=== PATIENT | male | born 1990 | race Caucasian/White ===

== ENCOUNTER → 2024-04-13 | Outpatient (CLI) | payer BC ==
[2024-04-13 11:59] VITALS: BP 116/78; PULSE 81; RESP 18; TEMP 98
--- NOTE | 2024-04-13 12:26 | P.SLEEP ---
History of Present Illness DATE: 04/13/2024 CONSULTATION/NEW PATIENT EVALUATION HISTORY OF PRESENT ILLNESS/SLEEP-WAKE EVALUATION: 54-year-old gentleman had b een evaluated in the sleep center for possible obstructive sleep apnea hypopnea syndrome. SLEEP SCHEDULE: Usually sleep schedule 10 PM to 7 AM on weekdays and from 1 AM until 10 AM on weekend. FALLING ASLEEP: No problems with falling asleep. DURING SLEEP: Patient snores and wakes up from sleep up to 5 times with up to 1 episode of necessity to use restroom at night. Positive history of grinding teeth, heartburn and sweating. No history of hypnogogical hallucinations, sleep paralysis, or cataplexy. DURING THE DAY/WAKE STATE: During the day patient has difficulties to pay attention, to concentrate. [place] Sleepiness Scale is in very high range of 14. Patient may take 1 nap during the day. PAST MEDICAL HISTORY: Hypertension, diabetes mellitus, hyperlipidemia. PAST SURGICAL HISTORY: Bilateral knee surgery, left clavicle surgery. MEDICATIONS: Please see below. SOCIAL HISTORY: Please see below. FAMILY HISTORY: Hypertension, asthma, sleep apnea, diabetes, liver problems, t hyroid problems. REVIEW OF SYSTEMS: Snoring, multiple awakenings from sleep, sleepiness during the day. No fevers. No double vision. No recent chest pain. No shortness of breath. No abdominal pain. No bleeding episodes. No blood in urine. No seizure episodes. PHYSICAL EXAMINATION: GENERAL: A pleasant patient without any distress. VITAL SIGNS: Please see below, weight 312.6 pounds, BMI 41.1. HEENT: PERRLA, EOMI. Evaluation of oropharynx showed tongue protrudes midline, low position of soft palate Mallampati 23, extremely wide pillars, retrognathia 1 to 2 mm. NECK: Supple. No JVD. Thyroid is not palpable. 19 inches in circumference. LUNGS: Clear to percussion and to auscultation. Good air exchange. No wheezing or rhonchi. HEART: S1, S2 regular. No murmurs, gallops or rubs. ABDOMEN: Soft and nontender. Bowel sounds are present. No organomegaly appreciated. EXTREMITIES: No clubbing or cyanosis. 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 Cranial nerves 2 to 7 intact. There is no fasciculation or atrophy noted. No focal deficits observed. ASSESSMENT: 1. Snoring, multiple awakenings from sleep, small oropharyngeal airspace, extremely wide neck 19 inches in circumference, sleepiness with [place] Sleepiness Scale 14. Obstructive sleep apnea hypopnea syndrome. 2. Obesity, BMI 41.1. 3. Hypertension. 4. Diabetes mellitus. 5 hyperlipidemia. 6 . Status post bilateral knee surgery. 7. Status post left clavicle surgery. 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 Polysomnography for evaluation of patient's breathing during sleep. 2. Following plan after reading sleep study. 3. Preferable position during sleep on the side. 4. No driving if patient feels any sleepiness. Patient is aware of civil and criminal liability for unsafe driving. 5. Sleep hygiene with regular sleep time for at least 7.5-8 hours. 6. Watching and losing weight. Thank you very much for referring this patient for consultation. Sincerely, Feliberto Brady MD, PhD, FAASM. Diplomat of [employer], Sleep Medicine Board by [employer] Extender of [facility] [place] Past Medical History Past Medical History: Diabetes Mellitus, GERD/Reflux, Hyperlipidemia, Hypertension Additional Past Medical History / Comment(s): SNORING History of Any Multi-Drug Resistant Organisms: None Reported Past Surgical History: Orthopedic Surgery Additional Past Surgical History / Comment(s): LEFT COLLAR BONE, BILATERAL KNEES - MENISCUS, WILL HAVE LEFT KNEE ACL REPAIR ON APRIL 24, 2024. Past Psychological History: Anxiety Additional Psychological History / Comment(s): NOT ON ANY MEDS FOR THIS Smoking Status: Never smoker Past Alcohol Use History: Occasional Past Drug Use History: None Reported - Past Family History Father Family Medical History: Diabetes Mellitus, Hypertension, Liver Disease, Sleep Apnea/CPAP/BIPAP Additional Family Medical History / Comment(s): SNORING, CIRRHOSIS, (SISTER ALSO HTN AND THYROID) Mother Family Medical History: Asthma, GERD/Reflux, Thyroid Disorder Additional Family Medical History / Comment(s): ARTHRITIS, ULCERS, Medications and Allergies Home Medications Medication Instructions Recorded Confirmed Type Rosuvastatin [Crestor] 20 mg PO DAILY 04/13/24 04/13/24 History Tirzepatide [Mounjaro] 5 mg INJ WEEKLY 04/13/24 04/13/24 History lisinopriL [Zestril] 20 mg PO DAILY 04/13/24 04/13/24 History metFORMIN HCL 1,000 mg PO BID 04/13/24 04/13/24 History Physical Exam Vitals: Vital Signs Temp Pulse Resp BP Pulse Ox 04/13/24 11:58 98.0 F 81 18 116/78 95 Intake and Output 04/12/24 04/13/24 04/13/24 22:59 06:59 14:59 Other: Weight 141.691 kg Sleep Note - Sleep Data ESS Total: 14 - Sleep Note Sleep Note: Temperature: 98.0 F Pulse Rate: 81 Respiratory Rate: 18 Blood Pressure: 116/78 SpO2: 95 Height: 6 ft 1 in Weight: 141.691 kg BMI: Neck Circumference: 19
== END ==
LOC: 3 N SLEEP 11:38
PROVIDERS: ATTEND Internal Medicine
DX: G47.33 Obstructive sleep apnea (adult) (pediatric) (principal); E66.9 Obesity, unspecified; I10 Essential (primary) hypertension; E11.9 Type 2 diabetes mellitus without complications; E78.5 Hyperlipidemia, unspecified; Z98.890 Other specified postprocedural states; Z68.41 Body mass index [BMI] 40.0-44.9, adult; Z79.899 Other long term (current) drug therapy; Z79.84 Long term (current) use of oral hypoglycemic drugs; Z79.85 Long-term (current) use of injectable non-insulin antidiabetic drugs
CPT/HCPCS: 99202